=== PATIENT | male | born 2000 | race Hispanic/Latino ===

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

== ENCOUNTER 2021-03-12 23:41 | Emergency (ER) | payer MEDICAID, OTHER ==
[2021-03-13] MEDS ORDERED: IVER3TAB PO (12:19)
[2021-03-13] MEDS ORDERED: AZITH500IV IV (12:19)
[2021-03-13] MEDS ORDERED: ASPI-1005 PO (12:19)
== END 2021-03-12 23:46 | disposition left against medical advice (07) ==
LOC: EDH 23:41
DX: R11.2 Nausea with vomiting, unspecified (principal); Z53.21 Procedure and treatment not carried out due to patient leaving prior to being seen by health care provider

== ENCOUNTER 2021-03-13 08:48 | Emergency (ER) | payer OTHER ==
[~2021-03-13] VITALS: Ht 180.3 cm; Wt 108.9 kg
[2021-03-13 08:50] VITALS: BP 135/77
[2021-03-13 10:58] LABS: BASOPHILS % (AUTO) 0.4 % (0.0-5.0); EOSINOPHILS % (AUTO) 0.2 % (0.0-8.0); HEMATOCRIT 43.6 % (42-54); LYMPHOCYTES % (AUTO) 15.9 % (21.0-51.0); MEAN CORPUSCULAR HEMOGLOBIN 26.4 pg (27.0-33.0); MEAN CORPUSCULAR HGB CONC 33.3 g/dL (32.0-36.0); MEAN CORPUSCULAR VOLUME 79.4 fL (80-100); MONOCYTES % (AUTO) 7.9 % (3.0-13.0); NEUTROPHILS % (AUTO) 75.4 % (40.0-77.0); PLATELET COUNT (AUTO) 135 K/uL (130-400); RED BLOOD CELL COUNT(AUTO) 5.49 MIL/uL (4.50-6.20); WHITE BLOOD COUNT (AUTO) 9.7 K/uL (4.8-10.8)
[2021-03-13 11:04] LABS: CREATININE 1.1 mg/dL (0.5-1.5); POTASSIUM 3.7 mmol/L (3.5-5.1)
[2021-03-13 11:13] LABS: ALBUMIN 3.6 g/dL (3.5-5.0); BILIRUBIN,DIRECT 0.3 mg/dL (0.0-0.3); BILIRUBIN,TOTAL 0.8 mg/dL (0.2-1.0); CRP QUANTITATIVE 131.5 mg/L (0.00-9.0); TOTAL PROTEIN, SERUM 7.8 g/dL (6.0-8.3)
[2021-03-13 12:01] LABS: ERYTHROCYTE SEDIMENTATION RATE 9 MM/HR (0-15)
[2021-03-13] MEDS ORDERED: IVER3TAB PO (12:19)
[2021-03-13] MEDS ORDERED: AZITH500IV IV (12:19)
[2021-03-13] MEDS ORDERED: ASPI-1005 PO (12:19)
[2021-03-13] MEDS ORDERED: ACETAMINOPHEN 500 MG TABLET PO ONE (12:30)
[2021-03-13 13:23] VITALS: BP 135/74
== END 2021-03-13 13:14 | disposition home or self-care (01) ==
LOC: EDH 08:48
DX: J20.9 Acute bronchitis, unspecified (principal); Z20.822 Contact with and (suspected) exposure to COVID-19; Z79.82 Long term (current) use of aspirin
CPT/HCPCS: 36415; 71045; 80053; 82248; 82550; 82728; 83615; 84484; 85025; 85378; 85651; 86140; 87635; 93005; 99285; C9803

== ENCOUNTER 2024-09-06 09:41 | Emergency (ER) | payer MEDICAID ==
[~2024-09-06] VITALS: Ht 185.4 cm; Wt 111.1 kg
[~2024-09-06 09:41] MED LIST: ASPI-1005 PO; AZITH500IV IV; IVER3TAB PO
[2024-09-06] MEDS ORDERED: AMOX1TAB16 PO (10:56)
--- NOTE | 2024-09-06 10:58 | ERN ---
General Chief Complaint: Puncture Wound Stated Complaint: LEFT FOOT PUNCTURE , NAIL Time Seen by MD: 09:56 History of Present Illness Initial Comments Otherwise healthy 24-year-old male stepped through a shoe on a nail four days ago. Has pain to the bottom of the foot. He has been keeping it clean. No systemic symptoms. No medical conditions. Allergies: Coded Allergies: No Allergy Information Available (Verified Allergy, Unknown, 03/13/21) No Known Drug Allergies (Unverified Allergy, Unknown, 03/13/21) Home Meds Active Scripts Aspirin (ASPIRIN 81MG CHEW TAB) 81 Mg Tab.chew, 81 MG PO DAILY, #30 TAB.CHEW Prov:SARA STEINBERG MD 03/13/21 Azithromycin (Zithromax 500 mg) 500 Mg/250 Ml Ivsoln, 500 MG IV DAILY for 3 Days, #3 ML Prov:SARA STEINBERG MD 03/13/21 Ivermectin (Ivermectin) 3 Mg Tablet, 15 MG PO Q3D, #15 TAB Prov:SARA STEINBERG MD 03/13/21 Past Medical History Past Medical History: No Pertinent History Past Surgical History: None Social History Social History: Lives with family ROS Dictation CONSTITUTIONAL: No chills, no fever, no weakness, no diaphoresis, no malaise. HEAD/FACE: No signs of trauma. EENT: No eye pain, no blurred vision, no tearing, no double vision, no ear pain , no ear discharge, no nose pain, no nasal congestion, no throat pain, no throat swelling, no mouth pain. RESPIRATORY: No cough, no orthopnea, no SOB, no stridor, no wheezing. CARDIOVASCULAR: No chest pain, no edema, no palpitations, no syncope. GASTROINTESTINAL/ABDOMINAL: No abdominal pain, no constipation, no diarrhea, no nausea, no vomiting. GENITOURINARY: No abnormal discharge, no dysuria, no frequent urination, no hematuria. No complaints of pain in the genitals. MUSCULOSKELETAL: Left foot pain INTEGUMENTARY: No change in color, no change in hair/nails, no dryness, no lesion, no lumps, no rash. NEUROLOGICAL/PSYCH: No anxiety, not depressed, no emotional problem, no headache, no numbness, no pre-existing deficit, no history of seizures, no tremors, no weakness. HEMATOLOGIC/LYMPHATIC: Not anemic, no history of blood clots, no apparent bleeding, no bruising, glands not swollen. All Systems Negative, Except as Noted. Physical Exam Physical Exam Dictation VITAL SIGNS: Reviewed. GENERAL APPEARANCE: Alert, oriented x3, no acute distress, obese. HEAD AND FACE: Non-traumatic. EYES: PERRL, pink conjunctivas, eyelid no trauma, anterior chamber clear. EARS: Pinnas intact and no signs of trauma or erythema. Ear canals clear and no discharge. TMs no erythema. NOSE: No discharge, no bleeding. OROPHARYNX: Mouth normal, teeth no caries, tongue pink. Pharynx clear, no erythema. Tonsils no exudates, no abscesses noted. Mucous membrane moist. NECK: Supple, non-tender, no thyromegaly, no masses, no JVD, no bruits. BREAST: Deferred. CHEST: No tenderness, no crepitus, no paradoxical movement, no retractions. LUNGS: Clear, well-ventilated, symmetric, no rales, no wheezing, no rhonchi, no stridor, good breath sounds bilaterally. HEART: Regular rate, regular rhythm, no murmur, no gallops. VASCULAR: No peripheral edema. ABDOMEN: Soft, positive bowel sounds, nondistended, no guarding, nontender, no rebound, no masses no hepatomegaly, no splenomegaly, no Stevens's sign, no hernias. RECTAL: Deferred. GENITAL: Deferred. NEUROLOGICAL: Normal speech, gross motor function intact, gross sensory function intact. MUSCULOSKELETAL: Bottom of the foot puncture wound no surrounding erythema or tenderness no obvious foreign bodies. Neurovascularly intact. EXTREMITIES: Nontender, full range of motion. SKIN: Color pink, dry, no turgor, no rash, no lacerations, no abrasions, no contusions. LYMPHATICS: Deferred. MDM CC: Puncture wound to the left foot four days ago with pain. No comorbidities No limitations by social determinants of health Stable vital signs Differential diagnosis: Puncture wound versus foreign body versus wound with infection foot x-ray (per my independent interpretation ): No foreign bodies or bony involvement. Tetanus shot was updated. We will DC with pain control and antibiotics. There is no signs of SIRS or sepsis or significant infection currently. ED Course Orders Procedure Category Date Status Time Foot Limited 2vws Lt RAD 09/06/24 Taken 09:59 Tetanus,Diphtheria PHA 09/06/24 Complete Tox [Adult] (Diphther 10:00 Current Medications Medications (Trade) Dose Ordered Sig/Adan Route PRN Reason Start Time Stop Time Status Last Admin Dose Admin Tetanus/ Diphtheria Toxoids Adsorbed (DiphthERIA-teTANUS TOXOID [ADULT]/ DECAVAC) 0.5 ml ONCE ONCE IM 09/06/24 10:00 09/06/24 10:02 DC Vital Signs Date Time Temp Pulse Resp B/P (MAP) Pulse Ox O2 Delivery O2 Flow Rate FiO2 09/06/24 10:05 97.9 69 16 110/68 95 Room Air* 0 21 09/06/24 09:43 97.9 72 16 124/81 97 Room Air 0 DX & DISP Disposition: Discharge Departure Impression: Primary Impression: Puncture wound of foot, left Condition: Stable Scripts Amoxicillin/Potassium Clav (Amox Tr-K Clv 875-125 mg Tab) 875 Mg-125 Mg Tablet 1 TAB PO BID for 10 Days, #20 TAB 0 Refills Prov: LALO GUADARRAMA DO 09/06/24 Additional Instructions: The x-ray shows no bony abnormalities or foreign bodies. Your tetanus was updated here in the ER. I have prescribed amoxicillin clavulanic acid, which is an antibiotic. Please take the full course of antibiotics as prescribed. You can take [id number] Tylenol (1000 mg) or ibuprofen (800 mg) as needed for pain. Please return to the emergency department if you have any concerns. Referrals: LONNIE PRABHAKAR (PCP) LALO GUADARRAMA DO Sep 06, 2024 10:57
--- NOTE | 2024-09-06 11:08 | HMCIMG ---
FOOT LIMITED 2VWS LT CLINICAL HISTORY: foreign body COMPARISON: None TECHNIQUE: AP and lateral images were obtained. FINDINGS: No obvious fracture or dislocation. No joint effusion. The soft tissues appear unremarkable. No radiopaque foreign bodies. IMPRESSION: Normal study
[2024-09-06] MEDS: teTANUS/diphthERIA TOXOID [ADULT] 0.5 ML VIAL IM ONE (11:13)
[2024-09-06 11:20] VITALS: BP 121/76; PULSE 76; RESP 16; TEMP 97.8; O2SAT 98
--- NOTE | 2024-09-06 11:24 | NUR ---
TETANUS GIVEN TO LEFT DELTOID.PATIENT TOLERATED IT WELL. LEFT WITH DISCHARGE INSTRUCTIONS AND PRESCRIPTION.
== END 2024-09-06 11:25 | disposition home or self-care (01) ==
LOC: EDH 09:41
DX: S91.332A Puncture wound without foreign body, left foot, initial encounter (principal); Z79.82 Long term (current) use of aspirin; Z79.899 Other long term (current) drug therapy; W45.0XXA Nail entering through skin, initial encounter; Y93.89 Activity, other specified; Y92.89 Other specified places as the place of occurrence of the external cause; Y99.8 Other external cause status
CPT/HCPCS: 73620; 90471; 90714; 99283

== ENCOUNTER 2025-08-16 09:47 | Emergency (ER) | payer SELFPAY ==
[~2025-08-16] VITALS: Ht 185.4 cm; Wt 144.4 kg
--- NOTE | 2025-08-16 10:17 | ERN ---
ED Note History of Present Illness Stated Complaint: ABSCESS Chief Complaint: Abscess Time Seen by MD: 09:59 Dictation: PATIENT IS A 25-YEAR-OLD MALE COMING IN WITH HIS WITH COMPLAINTS OF A SWOLLEN AREA TO HIS LEFT AXILLA HE HAS HAD FOR SEVERAL DAYS. NO FEVER NO CHILLS NO NAUSEA VOMITING. NO HISTORY OF DIABETES. HE STATES HE HAS HAD ABSCESSES IN THE BACK AND HE THINKS THIS IS ONE TO PATIENT IS A PRIMARY CARE DOCTOR OF [place]. HAS NOT BEEN TO SEE THEM. Allergies: Coded Allergies: No Allergy Information Available (Verified Allergy, Unknown, 03/13/21) No Known Drug Allergies (Unverified Allergy, Unknown, 03/13/21) Home Meds Active Scripts Amoxicillin/Potassium Clav (Amox Tr-K Clv 875-125 mg Tab) 875 Mg-125 Mg Tablet, 1 TAB PO BID for 10 Days, #20 TAB 0 Refills Prov:LALO GUADARRAMA DO 09/06/24 Aspirin (ASPIRIN 81MG CHEW TAB) 81 Mg Tab.chew, 81 MG PO DAILY, #30 TAB.CHEW Prov:SARA STEINBERG MD 03/13/21 Azithromycin (Zithromax 500 mg) 500 Mg/250 Ml Ivsoln, 500 MG IV DAILY for 3 Days, #3 ML Prov:SARA STEINBERG MD 03/13/21 Ivermectin (Ivermectin) 3 Mg Tablet, 15 MG PO Q3D, #15 TAB Prov:SARA STEINBERG MD 03/13/21 Past Medical History Past Medical History: No Pertinent History Surgical History: None Social History: Lives with family RN Note Reviewed/Agreed w/PFSH: Yes Review of System Dictation CONSTITUTIONAL: NEGATIVE EXCEPT FOR HPI HEAD/FACE: NEGATIVE EXCEPT FOR HPI EENT: NEGATIVE EXCEPT FOR HPI RESPIRATORY: NEGATIVE EXCEPT FOR HPI GASTROINTESTINAL/ABDOMINAL: NEGATIVE EXCEPT FOR HPI GENITOURINARY: NEGATIVE EXCEPT FOR HPI MUSCULOSKELETAL: NEGATIVE EXCEPT FOR HPI INTEGUMENTARY: NEGATIVE EXCEPT FOR HPI SWELLING TO LEFT AXILLA NEUROLOGICAL/PSYCH: NEGATIVE EXCEPT FOR HPI HEMATOLOGIC/LYMPHATIC: NEGATIVE EXCEPT FOR HPI ALL SYSTEMS NEGATIVE, EXCEPT NOTED ABOVE. 13 POINT REVIEW OF SYSTEMS ASSESSED AND ALL NEGATIVE EXCEPT FOR ABOVE. Initial Vital Sign VS Vital Signs Date Time Temp Pulse Resp B/P (MAP) Pulse Ox O2 Delivery O2 Flow Rate FiO2 08/16/25 09:50 97.9 78 18 138/85 98 Room Air 0 Physical Exam Dictation VITAL SIGNS REVIEWED GENERAL APPEARANCE: ALERT, ORIENTED X 3, MILD ACUTE DISTRESS, WELL DEVELOPED, NOURISHED. HEAD AND FACE: NON-TRAUMATIC. EYES: PERRL, PINK CONJUNCTIVAS, EYELID NO TRAUMA, ANTERIOR CHAMBER WITH ARCUS SENILIS. EARS: PINNAS INTACT AND NO SIGNS OF TRAUMA OR ERYTHEMA EAR CANALS CLEAR AND NO DISCHARGE TM NO ERYTHEMA NOSE: NO DISCHARGE, NO BLEEDING. OROPHARYNX: MOUTH NORMAL, TONGUE PINK, PHARYNX CLEAR,NO ERYTHEMA, TONSILS NO EXUDATES, NO ABSCESSES NOTED, MUCOUS MEMBRANE MOIST NECK: SUPPLE, NON-TENDER, NO THYROMEGALY, NO MASSES, NO JVD, NO BRUITS BREAST:DEFERRED CHEST:NO TENDERNESS, NO CREPITUS, NO PARADOXICAL MOVEMENT, NO RETRACTIONS LUNGS:CLEAR, WELL-VENTILATED, SYMMETRIC, NO RALES, NO WHEEZING, NO RHONCHI, NO STRIDOR, GOOD BREATH SOUNDS BILATERALLY HEART: REGULAR RATE, REGULAR RHYTHM, NO MURMUR, NO GALLOPS VASCULAR: NO PERIPHERAL EDEMA, ABDOMEN: SOFT, POSITIVE BOWEL SOUNDS, NONDISTENDED, NO GUARDING, NONTENDER, NO REBOUND, NO MASSES NO HEPATOMEGALY, NO SPLENOMEGALY, NO WOODWARD'S SIGN, NO HERNIAS. RECTAL: DEFERRED GENITAL: DEFERRED NEUROLOGICAL: NORMAL SPEECH, MOTOR FUNCTION INTACT, SENSORY FUNCTION INTACT MUSCULOSKELETAL: NECK NONTENDER, FULL RANGE OF MOTION, BACK NONTENDER, FULL RANGE OF MOTION, EXTREMITIES: NONTENDER, FULL RANGE OF MOTION MILD LOCALIZED SWELLING TO THE LEFT AXILLA THERE WAS NO ERYTHEMA NO INDURATION. NO FLUCTUANCE SKIN: COLOR PINK, DRY, NO TURGOR, NO RASH, NO LACERATIONS, NO ABRASIONS, NO CONTUSIONS. LYMPHATIC: DEFERRED Results (Laboratory/Radiology) Labs Reviewed?: Yes ED Course ED Course Orders Procedure Category Date Status Time Ibuprofen 800 Mg Tab PHA 08/16/25 In Process (Motrin) 10:30 Current Medications Medications (Trade) Dose Ordered Sig/Adan Route PRN Reason Start Time Stop Time Status Last Admin Dose Admin Ibuprofen (moTRIN) 800 mg ONCE ONCE PO 08/16/25 10:30 08/16/25 10:31 Vital Signs Date Time Temp Pulse Resp B/P (MAP) Pulse Ox O2 Delivery O2 Flow Rate FiO2 08/16/25 09:50 97.9 78 18 138/85 98 Room Air 0 1015/EXPLAINED TO PATIENT IN HIS THERE WAS NO NEED FOR AND I AND D AT THIS TIME. PATIENT WILL BE PLACED ON CLINDAMYCIN AND INSTRUCTED TO FOLLOW UP WITH DR. PRABHAKAR IN THE NEXT ONE TWO DAYS OR HE CAN FOLLOW UP WITH DR. KATERINE SAGE FOR FOLLOW UP Medical Decision Making MDM MEDICAL DECISION-MAKING BASED ON HPI AND PHYSICAL EXAMINATION. PATIENT IS AFEBRILE HEMODYNAMICALLY STABLE ASSESSMENT OF LEFT AXILLA DEMONSTRATES I LIKELY CYST THERE WAS NO FLUCTUANCE NO ERYTHEMA MILD TENDERNESS. PATIENT WILL BE GIVEN CLINDAMYCIN AND INSTRUCTED TO FOLLOW UP WITH HIS PRIMARY CARE DOCTOR DX & DISP Disposition: Discharge Departure Impression: Primary Impression: Sebaceous cyst of left axilla Condition: Stable Scripts Ibuprofen (Ibuprofen) 600 Mg Tablet 600 MG PO Q6H PRN for PAIN, #30 TAB Prov: MATTHEW PAZ 08/16/25 Clindamycin HCl (Clindamycin HCl) 300 Mg Capsule 1 CAP PO QID for 10 Days, #40 CAP 0 Refills Prov: MATTHEW PAZ 08/16/25 Additional Instructions: FOLLOW-UP WITH PRIMARY CARE PROVIDER IN 1 TO 2 DAYS. TAKE MEDICATIONS DIREC ALAYNA HERE IN THE EMERGENCY ROOM. OKAY TO CONTINUE HOME MEDICATIONS UNLESS OTHERWISE DISCUSSED DURING YOUR VISIT IN THE EMERGENCY ROOM TODAY. RETURN TO YOUR NEAREST EMERGENCY ROOM IF SYMPTOMS WORSEN OR IF THERE IS NO IMPROVEMENT. CALL 911 IF YOU NEED IMMEDIATE ASSISTANCE. TAKE TYLENOL OR MOTRIN [id number] NEEDED AND IF NO CONTRAINDICATIONS ARE PRESENT. INCREASE ORAL HYDRATION. A WOUND CULTURE OR URINE CULTURE WAS ORDERED HERE IN THE EMERGENCY ROOM DEPARTMENT PLEASE FOLLOW-UP WITH PRIMARY CARE PROVIDER AND ADVISE THEM TO GET REPEAT PORTS FROM OUR FACILITY. IF YOU HAD ANY PHU WRAP/SPLINTS THAT WERE APPLIED HERE, PLEASE DO NOT REMOVE THEM UNTIL YOU SEE YOUR PRIMARY CARE OR SPECIALTY. TAKE CLINDAMYCIN DIRECTED UNTIL GONE. TAKE TWO CAPSULES FOR THE 1ST DOSE, THEN TAKE ONE CAPSULE EVERY 6 HOURS DIRECTED UNTIL GONE. SEE YOUR PRIMARY CARE DOCTOR ON SUNDAY OR CALL THE GENERAL SURGEON FOR AN APPOINTMENT IN THE NEXT 1-2 DAYS FOR MANAGEMENT. Referrals: LONNIE PRABHAKAR (PCP) KATERINE SAGE MD Time of Disposition: 10:15 I have reviewed the case, and I agree with, Diagnosis and Plan MATTHEW PAZ Aug 16, 2025 10:17
[2025-08-16 10:35] VITALS: BP 129/77; PULSE 77; RESP 18; TEMP 97.9; O2SAT 97
== END 2025-08-16 10:37 | disposition home or self-care (01) ==
LOC: EDH 09:47
DX: L72.3 Sebaceous cyst (principal); Z79.82 Long term (current) use of aspirin
CPT/HCPCS: 99283